=== PATIENT | female | born 1975 | race Hispanic/Latino ===

== ENCOUNTER → 2017-02-08 | Outpatient (CLI) | payer OTHER ==
--- NOTE | 2017-02-08 14:51 | US ---
History: Right breast nodule. DATE OF SERVICE: 02/08/2017 Services provided: Full field digital diagnostic bilateral mammography. CAD, the images were reviewed with R2 computer aided detection. Directed right breast ultrasound. FINDINGS: Glandular tissue is of increased mammographic density. This exam is compared with a 2013 study. Well-defined, partially circumscribed mammographic nodule upper outer right breast is stable and unchanged and in the vicinity of palpable change. No architectural distortion or dominant mass. No clustered microcalcifications. Directed ultrasound palpable changes right breast confirms a 3.3 cm gently lobulated nodule right breast 10:00 that corresponds to the prior palpable change and is stable and unchanged since ultrasound from 12/2013. The patient underwent ultrasound-guided needle sampling at that time. IMPRESSION: Benign exam. Palpable changes right breast corresponds to a previously biopsied nodule that is stable since 2013, further verifying its benign etiology. No mammographic abnormality is noted on the left. Recommendation: Annual screening mammography. Findings and recommendations were discussed with the patient who was also given mastodynia recommendations. BIRAD CATEGORY: 2 BENIGN Electronically signed by: Ally Brewer MD 02/08/2017 2:49 PM CDT
== END ==
LOC: MAMMO 14:29
PROVIDERS: ATTEND Family Medicine
DX: N63 Unspecified lump in breast (principal)
CPT/HCPCS: 76641; G0204

== ENCOUNTER → 2018-06-18 | Outpatient (CLI) | payer OTHER ==
--- NOTE | 2018-06-18 20:22 | MAM ---
EXAM DESCRIPTION: 3D Screening BILATERAL : Digital Mammography. CLINICAL HISTORY: 42 years Female SCREENING . No complaints. No personal history or family history of breast cancer. Childbirth. Premenopausal. No HRT.. Lifetime risk of developing breast cancer (Tyrer-Cuzick model) is 3.5 %. COMPARISON: 2-D bilateral diagnostic mammography 02/08/2017.. Right breast directed ultrasound on that same visit. TECHNIQUE: Bilateral CC and MLO projection full-field images, Digital tomosynthesis mammographic technique. Bilateral digital 2-D full-field MLO images. CAD not utilized. FINDINGS: The breast parenchymal density pattern is: Heterogeneously dense breast tissue, which may obscure small masses. No skin thickening or nipple retraction. Bilateral axillary lymph nodes. Mass in the upper outer quadrant posterior third of the right breast is stable since the prior study. History of benign biopsy of this solid mass. Bilateral solitary microcalcifications. No new focal, stellate mass or density, focal asymmetry , and no suspicious microcalcifications bilaterally. Stable mammograms compared to prior study. Taking into account, differences in mammographic technique. IMPRESSION: Benign exam. Stable size of biopsy-proven benign mass in the right breast. BIRAD CATEGORY: 2 BENIGN FINDINGS. RECOMMENDATIONS: FOLLOW UP: Routine digital bilateral screening, one year interval from June 2018. Written communication explaining the IMPRESSION and follow-up, will be mailed to the patient and referring health care provider. According to the [employer], yearly mammograms are recommended starting at age 40 and continuing as long as a woman is in good health. Any breast change noted on a breast self-exam should be reported promptly to the patient's healthcare provider. Breast MRI is recommended for women with an approximately 20-25% or greater lifetime risk of breast cancer, including women with a strong family history of breast or ovarian cancer and women who have been treated for Hodgkin's disease. A negative mammographic report should not delay tissue diagnosis in patients with significant clinical history or physical findings. Extremely dense breast tissue limits the sensitivity of digital mammography. Electronically signed by: Anshu Gresham MD 06/18/2018 8:21 PM CDT
== END ==
LOC: MAMMO 09:00
PROVIDERS: ATTEND Family Medicine
DX: Z12.31 Encounter for screening mammogram for malignant neoplasm of breast (principal)